=== PATIENT | male | born 1950 | race American Indian/Alaskan Native ===

== ENCOUNTER 2020-04-21 16:07 | Emergency (ER) | payer SELFPAY ==
[2020-04-21] MEDS ORDERED: ASPIRIN 325 MG TAB PO ONE (16:30)
--- NOTE | 2020-04-21 16:33 | Event Note ---
ED Screening Note ED Screening Note: chest pain for 1-2 days radiates to left face This initial assessment/diagnostic orders/clinical plan/treatment(s) is/are subject to change based on patients health status, clinical progression and re- assessment by fellow clinical providers in the ED. Further treatment and workup at subsequent clinical providers discretion. Patient/guardian urged not to elope from the ED as their condition may be serious if not clinically assessed and managed. Initial orders include: cardiac evaluation
[2020-04-21 16:47] LABS: Basophils % (Auto) 0.5 % (0.0-1.8); Eosinophils # (Auto) 0.1 K/mm3 (0.0-0.4); Eosinophils % (Auto) 1.5 % (0.0-4.3); Hematocrit 37.7 % (35.5-45.6); Hemoglobin 13.2 gm/dl (11.8-15.2); Lymphocytes # (Auto) 2.3 K/mm3 (1.2-5.4); Lymphocytes % (Auto) 28.5 % (13.4-35.0); Mean Corpuscular HGB Conc 35 % (32-34); Mean Corpuscular Volume 91 fl (84-94); Monocytes # (Auto) 0.4 K/mm3 (0.0-0.8); Monocytes % (Auto) 4.9 % (0.0-7.3); Platelet Count 228 K/mm3 (140-440); Red Blood Count 4.15 M/mm3 (3.65-5.03); Red Cell Distribution Width 14.6 % (13.2-15.2)
[2020-04-21 17:03] LABS: Alanine Aminotransferase 12 units/L (7-56); Albumin 4.1 g/dL (3.9-5); BUN/Creatinine Ratio 10; Blood Urea Nitrogen 9 mg/dL (9-20); Calcium 8.7 mg/dL (8.4-10.2); Hemolysis Index 4
--- NOTE | 2020-04-21 17:19 | Emergency Department Report ---
ED Chest Pain HPI - General Chief Complaint: Chest Pain Stated Complaint: CHEST PAIN PUI?: No Time Seen by Provider: 04/21/20 17:13 Source: patient Mode of arrival: Ambulatory Limitations: No Limitations - History of Present Illness Initial Comments: Patient is a 69-year-old male that presents emergency room with complaints of c hest pain x2 days. Patient states that his chest pain has been there for 2 days and is worsening. Patient states yesterday it was a 2 out of 10 and now it is a 5 out of 10. Patient states the chest pain is worse with palpation and movement. Patient states the chest pain is better with rest. Patient denies chest wall trauma. Patient denies fall. Patient denies shortness of breath. Patient states he has had chest wall pain for many years and it comes and goes. Patient states that he typically just waits for it to go away and does not take medications. Patient denies fever and chills. Patient denies nausea and vomiting. Patient states she moved here from [place] to go to a long term in this area. Patient states he is in a long term for his psychiatric diagnosis. Patient denies recent travel. Patient denies recent international travel. Patient denies exposure to the novel coronavirus. Patient denies sick contacts. Patient denies fever and chills. Patient denies cough. Patient denies diarrhea. Patient denies coming in contact with anybody with symptoms of the novel coronavirus. MD Complaint: chest pain -: Sudden Onset: during rest Pain Location: substernal, left chest, right chest Pain Radiation: neck Severity scale (0 -10): 5 Quality: sharp Consistency: constant Improves With: rest Worsens With: palpation, movement re: denies: nausea, vomting, diaphoresis, dyspnea, sense of impending doom Other Symptoms: denies: cough, fever, syncope, rash, acid taste in mouth, leg swelling, palpitations, burping Treatments Prior to Arrival: none Aspirin use within the Past 7 Days: (0) No - Related Data On Oral Contraceptives: No Previous Rx's Medication Instructions Recorded Last Taken Type Naproxen 500 mg PO BID PRN #10 tablet 04/21/20 Unknown Rx Allergies Allergy/AdvReac Type Severity Reaction Status Date / Time No Known Allergies Allergy Unverified 04/21/20 16:27 Heart Score - HEART Score History: Slightly suspicious EKG: Normal Age: > 65 Risk factors: No known risk factors Troponin: < normal limit HEART Score: 2 ED Review of Systems ROS: Stated complaint: CHEST PAIN Other details as noted in HPI Constitutional: denies: chills, fever Eyes: denies: eye pain, eye discharge, vision change ENT: denies: ear pain, throat pain Respiratory: denies: cough, shortness of breath, wheezing Cardiovascular: chest pain. denies: palpitations Endocrine: no symptoms reported Gastrointestinal: denies: abdominal pain, nausea, diarrhea Genitourinary: denies: urgency, dysuria Musculoskeletal: denies: back pain, joint swelling, arthralgia Skin: denies: rash, lesions Neurological: denies: headache, weakness, paresthesias Psychiatric: denies: anxiety, depression Hematological/Lymphatic: denies: easy bleeding, easy bruising ED Past Medical Hx - Past Medical History Previous Medical History?: Yes Hx Psychiatric Treatment: Yes (Memory and depression) - Surgical History Past Surgical History?: Yes Additional Surgical History: left hip - Family History Family history: no significant - Social History Smoking Status: Never Smoker Substance Use Type: None - Medications Home Medications: Home Medications Medication Instructions Recorded Confirmed Last Taken Type Naproxen 500 mg PO BID PRN #10 tablet 04/21/20 Unknown Rx ED Physical Exam - General Limitations: No Limitations General appearance: alert, in no apparent distress - Head Head exam: Present: atraumatic, normocephalic - Eye Eye exam: Present: normal appearance - ENT ENT exam: Present: mucous membranes moist - Neck Neck exam: Present: normal inspection - Respiratory Respiratory exam: Present: normal lung sounds bilaterally, chest wall tenderness (Palpation of the bilateral chest wall and the sternal region reproduces symptoms. Patient has chest wall tenderness noted.). Absent: respiratory distress - Cardiovascular Cardiovascular Exam: Present: regular rate, normal rhythm. Absent: systolic murmur, diastolic murmur, rubs, gallop - GI/Abdominal GI/Abdominal exam: Present: soft, normal bowel sounds. Absent: distended, tenderness, guarding - Rectal Rectal exam: Present: deferred - Extremities Exam Extremities exam: Present: normal inspection - Back Exam Back exam: Present: normal inspection - Neurological Exam Neurological exam: Present: alert, oriented X3 - Psychiatric Psychiatric exam: Present: normal affect, normal mood - Skin Skin exam: Present: warm, dry, intact, normal color. Absent: rash ED Course Vital Signs 04/21/20 04/21/20 16:32 18:38 Temperature 97.7 F 98 F Pulse Rate 74 65 Respiratory 18 18 Rate Blood Pressure 102/70 Blood Pressure 135/83 [Right] O2 Sat by Pulse 97 Oximetry - Reevaluation(s) Reevaluation #1: Patient states his pain has resolved. I discussed all results and clinical findings with patient. I discussed plan of care with patient. Patient agrees with plan of care. Patient is stable for discharge. Patient will be discharged home. Patient given discharge instructions. Patient voiced understanding of discharge instructions. Patient's information faxed over by the business unit leader to our local cardiology group for further evaluation and treatment and restratification of his chest pain. 04/21/20 17:56 MICHAEL score - Michael Score Age > 65: (1) Yes Aspirin use within the Past 7 Days: (0) No 3 or more CAD Risk Factors: (0) No 2 or more Angina events in past 24 hrs: (0) No Known CAD with more than 50% Stenosis: (0) No Elevated Cardiac Markers: (0) No ST Deviation Greater than 0.5mm: (0) No MICHAEL Score: 1 ED Medical Decision Making - Lab Data Result diagrams: 04/21/20 16:35 04/21/20 16:35 - EKG Data -: EKG Interpreted by Me EKG shows normal: sinus rhythm, axis, intervals, QRS complexes, ST-T waves Rate: normal - Radiology Data Radiology results: report reviewed, image reviewed interpreted by me: Chest x-ray: No pneumonia, no pneumothorax, no foreign body, no osseous findings, no acute findings - Medical Decision Making Patient is a 69-year-old male that presents emergency room with chest pain x2 d ays. Patient's chest pain is radiating up towards the base of his neck. Patient's chest pain is reproducible on exam. Patient had labs and a cardiac work-up to include EKG and chest x-ray and blood work. Patient's labs were essentially unremarkable. Patient's troponin negative. Patient's EKG shows no acute findings or ST changes. Patient's EKG shows a sinus bradycardia. Patient EKG was interpreted by me. Patient's chest x-ray was done. Patient chest x- ray shows no acute findings. Patient's chest x-ray was interpreted by me. Patient is stable for discharge. Patient's chest pain can be worked up as outpatient. Patient's information faxed over to our local block greaser for further evaluation and treatment and risk stratification. Patient's chest pain resolved prior to discharge. Patient did not receive aspirin and the aspirin was discontinued. - Differential Diagnosis Chest pain, chest wall pain, costochondritis. Chest wall strain Critical care attestation.: If time is entered above; I have spent that time in minutes in the direct care of this critically ill patient, excluding procedure time. ED Disposition Clinical Impression: Costochondritis, acute Chest pain Qualifiers: Chest pain type: unspecified Qualified Code(s): R07.9 - Chest pain, unspecified Disposition: TO HOME OR SELFCARE Is pt being admited?: No Does the pt Need Aspirin: No Condition: Stable Instructions: Chest Wall Pain, [id number], Nonspecific Chest Pain, Adult, Nonspecific Chest Pain, Adult, [id number], Costochondritis, Chest Pain (ED) Additional Instructions: Patient to follow-up with primary care in 2 to 3 days. Patient to follow-up with cardiology in 2 to 3 days. Patient to rest. Patient to increase water. Patient to avoid strenuous exercise or heavy lifting until cleared by cardiology. Patient to take Tylenol as needed for pain. Patient to take 81 mg aspirin daily. Patient to take meds as directed. Patient to return to the ER if condition worsens, changes or new symptoms arise. Prescriptions: Naproxen 500 mg PO BID PRN #10 tablet PRN Reason: Pain , Severe (7-10) Referrals: SHEILA BUNDY MD [Staff Physician] - 2-3 Days PRACHI URIAS MD [Staff Physician] - 2-3 Days EMMANUEL HUNG MD [Staff Physician] - 2-3 Days Time of Disposition: 17:56
--- NOTE | 2020-04-21 18:24 | XRay Report ---
CHEST 2 VIEWS INDICATION / CLINICAL INFORMATION: Chest Pain. COMPARISON: None available. FINDINGS: SUPPORT DEVICES: None. HEART / MEDIASTINUM: No significant abnormality. LUNGS / PLEURA: No significant pulmonary or pleural abnormality. No pneumothorax. ADDITIONAL FINDINGS: No significant additional findings. IMPRESSION: 1. No acute findings. Signer Name: Sheila Uribe MD Signed: 04/21/2020 6:19 PM Workstation Name: [id number]
[2020-04-21 18:39] VITALS: BP 135/83
== END 2020-04-21 18:42 | disposition home or self-care (01) ==
LOC: ED 16:07
DX: M94.0 Chondrocostal junction syndrome [Tietze] (principal); R07.9 Chest pain, unspecified; F32.9 Major depressive disorder, single episode, unspecified; Z79.899 Other long term (current) drug therapy; Z98.890 Other specified postprocedural states
CPT/HCPCS: 36415; 71046; 80053; 83880; 84484; 85025; 93005; 99283

== ENCOUNTER 2021-03-04 13:25 | Emergency (ER) | payer MEDICARE ==
[2021-03-04 13:31] VITALS: BP 138/106
--- NOTE | 2021-03-04 14:24 | Event Note ---
ED Screening Note Date of service: 03/04/21 Time: 14:21 ED Screening Note: 70-year-old male presents to the emergency room for 4 to 5-year history of right lower quadrant pain. Patient states that the last day he has had pain a 4 out of 10. Patient is taking nothing for his pain. He states that he still has his appendix. 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 He has a history of schizophrenia denies any hallucinations no suicidal homicidal ideation. Patient reports that she is under too much stress. He denies any testicular pain or testicular swelling. He states he takes risperidone and a purple pill at night. He is followed by mental health at [facility] on [address] He denies any fever chills no nausea no vomiting states that exercising makes it worse and nothing makes it better. Patient has right lower quadrant tenderness. Nontoxic in appearance. Respiratory is is nonlabored This initial assessment/diagnostic orders/clinical plan/treatment(s) is/are subject to change based on patients health status, clinical progression and re- assessment by fellow clinical providers in the ED. Further treatment and workup at subsequent clinical providers discretion. Patient/guardian urged not to elope from the ED as their condition may be serious if not clinically assessed and managed. Initial orders include: INT CBC CMP urinalysis and lipase has been ordered
[2021-03-04] MEDS ORDERED: MORPHINE 4 MG/1 ML INJ IV ONE (14:34)
[2021-03-04] MEDS ORDERED: ONDANSETRON 4 MG/2 ML INJ IV ONE (14:35)
[2021-03-04 14:54] LABS: Basophils % (Auto) 0.5 % (0.0-1.8); Eosinophils % (Auto) 0.5 % (0.0-4.3); Hematocrit 46.4 % (35.5-45.6); Hemoglobin 15.3 gm/dl (11.8-15.2); Lymphocytes # (Auto) 2.8 K/mm3 (1.2-5.4); Lymphocytes % (Auto) 34.9 % (13.4-35.0); Mean Corpuscular HGB Conc 33 % (32-34); Mean Corpuscular Volume 92 fl (84-94); Monocytes # (Auto) 0.5 K/mm3 (0.0-0.8); Monocytes % (Auto) 6.1 % (0.0-7.3); Platelet Count 329 K/mm3 (140-440); Red Blood Count 5.07 M/mm3 (3.65-5.03); Red Cell Distribution Width 13.6 % (13.2-15.2)
[2021-03-04 15:13] LABS: Alanine Aminotransferase 11 units/L (7-56); Albumin 4.9 g/dL (3.9-5); Blood Urea Nitrogen 6 mg/dL (9-20); Calcium 9.9 mg/dL (8.4-10.2); Hemolysis Index 6
--- NOTE | 2021-03-04 15:14 | Cat Scan Report ---
. CT abdomen pelvis wo con INDICATION: abdominal pain. TECHNIQUE: All CT scans at this location are performed using CT dose reduction for ALARA by means of automated e xposure control. COMPARISON: None available. FINDINGS: The included lung bases demonstrate mild chronic scarring without acute abnormality. The gallbladder has a gallstone without evidence of acute cholecystitis. The liver, spleen, adrenal g lands, pancreas, and kidneys demonstrate no acute findings. There are some small nonobstructing stone s in left kidney measuring up to 5 mm. There is a simple cyst in the anterior left kidney. There are no acute bowel abnormalities. There is mild constipation. The abdominal aorta is nonaneurysmal. There is no abdominal or pelvic adenopathy. There are no acute osseous abnormalities. There are chronic appearing compression fractures of L1, L2, L3, and L4. IMPRESSION: 1. No acute findings. 2. Mild constipation. 3. Cholelithiasis. 4. Tiny nonobstructing left intrarenal stones. Signer Name: Jay Shelton MD Signed: 03/04/2021 3:09 PM Workstation Name: [id number]
[2021-03-04 15:26] LABS: BUN/Creatinine Ratio 9
--- NOTE | 2021-03-04 15:38 | Emergency Department Report ---
ED Abdominal Pain HPI - General Chief Complaint: Abdominal Pain Stated Complaint: RIGHT LOWER ABDOMINAL PAIN PUI?: No Time Seen by Provider: 03/04/21 14:33 Source: patient Mode of arrival: Ambulatory Limitations: No Limitations - History of Present Illness Initial Comments: Chief complaint abdominal pain HPI: This is a 70-year-old male with history of schizophrenia who presents with right upper quadrant pain. Pain is 4/10. No change with movement. He denies fever. Denies vomiting. MD Complaint: abdominal pain -: Gradual, days(s) (Several days) Location: RUQ Radiation: none Migration to: no migration Severity: mild Severity scale (0 -10): 4 Consistency: now resolved, other (After receiving IV morphine in the emergency department) Improves With: nothing Worsens With: nothing Associated Symptoms: nausea - Related Data Previous Rx's Medication Instructions Recorded Last Taken Type Naproxen 500 mg PO BID PRN #10 tablet 04/21/20 Unknown Rx HYDROcodone/APAP 5-325 [Lapwai 1 each PO Q6HR PRN #15 tablet 03/04/21 Unknown Rx 5/325] Allergies Allergy/AdvReac Type Severity Reaction Status Date / Time No Known Allergies Allergy Verified 03/04/21 13:31 ED Review of Systems ROS: Stated complaint: RIGHT LOWER ABDOMINAL PAIN Other details as noted in HPI Comment: All other systems reviewed and negative Constitutional: denies: chills, fever, malaise Cardiovascular: denies: chest pain Gastrointestinal: abdominal pain, nausea. denies: vomiting, diarrhea ED Past Medical Hx - Past Medical History Previous Medical History?: Yes Hx Psychiatric Treatment: Yes (Memory and depression) - Surgical History Past Surgical History?: Yes Additional Surgical History: left hip - Social History Smoking Status: Never Smoker Substance Use Type: None - Medications Home Medications: Home Medications Medication Instructions Recorded Confirmed Last Taken Type Naproxen 500 mg PO BID PRN #10 tablet 04/21/20 Unknown Rx HYDROcodone/APAP 5-325 [Lapwai 1 each PO Q6HR PRN #15 tablet 03/04/21 Unknown Rx 5/325] ED Physical Exam - General Limitations: No Limitations General appearance: alert, in no apparent distress, other (Well-appearing smiling appears comfortable eating food and drinking juice) - Head Head exam: Present: atraumatic, normocephalic - Eye Eye exam: Present: normal appearance - ENT ENT exam: Present: mucous membranes moist - Neck Neck exam: Present: normal inspection, full ROM - Respiratory Respiratory exam: Present: normal lung sounds bilaterally. Absent: respiratory distress, wheezes, rales, rhonchi - Cardiovascular Cardiovascular Exam: Present: regular rate, normal rhythm, normal heart sounds. Absent: systolic murmur, diastolic murmur, rubs, gallop - GI/Abdominal GI/Abdominal exam: Present: soft, normal bowel sounds. Absent: distended, tenderness, guarding, rebound - Rectal Rectal exam: Present: deferred - Extremities Exam Extremities exam: Present: normal inspection - Back Exam Back exam: Present: normal inspection - Neurological Exam Neurological exam: Present: alert, oriented X3 - Psychiatric Psychiatric exam: Present: normal affect, normal mood. Absent: depressed, agitated, anxious, flat affect, manic, homicidal ideation, suicidal ideation - Skin Skin exam: Present: warm, dry, intact, normal color. Absent: rash ED Course Vital Signs 03/04/21 13:29 Temperature 98.3 F Pulse Rate 76 Respiratory 16 Rate Blood Pressure 138/106 O2 Sat by Pulse 99 Oximetry ED Medical Decision Making - Lab Data Result diagrams: 03/04/21 14:20 03/04/21 14:20 Laboratory Results - last 24 hr 03/04/21 03/04/21 14:20 14:20 WBC 8.0 RBC 5.07 H Hgb 15.3 H Hct 46.4 H MCV 92 MCH 30 MCHC 33 RDW 13.6 Plt Count 329 Lymph % (Auto) 34.9 [place] % (Auto) 6.1 Eos % (Auto) 0.5 Baso % (Auto) 0.5 Lymph # (Auto) 2.8 [place] # (Auto) 0.5 Eos # (Auto) 0.0 Baso # (Auto) 0.0 Seg Neutrophils % 58.0 Seg Neutrophils # 4.6 Sodium 138 Potassium 3.9 Chloride 97.8 L Carbon Dioxide 26 Anion Gap 18 BUN 6 L Creatinine 0.7 L Estimated GFR > 60 BUN/Creatinine Ratio 9 Glucose 101 H Calcium 9.9 Total Bilirubin 0.70 AST 18 ALT 11 Alkaline Phosphatase 136 H Total Protein 7.6 Albumin 4.9 Albumin/Globulin Ratio 1.8 Lipase 33 - Radiology Data Radiology results: report reviewed Patient Name: BATOOL KNOX Gender: Male Date of : 1950 Referring Provider: SARAHI ROSE Organization: [facility] Accession Number: [id number] Requested Date: March 04, 2021 14:34 Report Status: Final Requested Procedure: 1 Procedure Description: CT abdomen pelvis wo con Modality: CT Findings Reporting MD: Jay Shelton Dictation Time: March 04, 2021 14:09 Column Precaster: Not available Social Sciences Professor Date: . CT abdomen pelvis wo con INDICATION: abdominal pain. TECHNIQUE: All CT scans at this location are performed using CT dose reduction for ALARA by means of automated exposure control. COMPARISON: None available. FINDINGS: The included lung bases demonstrate mild chronic scarring without acute a bnormality. The gallbladder has a gallstone without evidence of acute cholecystitis. The liver, spleen, adrenal glands, pancreas, and kidneys demonstrate no acute findings. There are some small nonobstructing stones in left kidney measuring up to 5 mm. There is a simple cyst in the anterior left kidney. There are no acute bowel abnormalities. There is mild constipation. The abdominal aorta is nonaneurysmal. There is no abdominal or pelvic adenopathy. There are no acute osseous abnormalities. There are chronic appearing compression fractures of L1, L2, L3, and L4. IMPRESSION: 1. No acute findings. 2. Mild constipation. 3. Cholelithiasis. 4. Tiny nonobstructing left intrarenal stones. Signer Name: Jay Shelton MD Signed: 03/04/2021 2:09 PM Workstation Name: [id number] - Medical Decision Making Clinical impression: Biliary colic CT revealed cholelithiasis and constipation. Patient tolerating snacks and juice in the emergency department. Referred to general surgeon. Prescribed Lapwai. CBC chemistry within normal limits Critical care attestation.: If time is entered above; I have spent that time in minutes in the direct care of this critically ill patient, excluding procedure time. ED Disposition Clinical Impression: Biliary colic, Cholelithiasis, Gallstones Disposition: HOME / SELF CARE / HOMELESS Is pt being admited?: No Does the pt Need Aspirin: No Condition: Stable Instructions: Cholelithiasis, [id number] Additional Instructions: Please make appointment with general surgeon. You may need your gallbladder ta shelbi out. Prescriptions: HYDROcodone/APAP 5-325 [Lapwai 5/325] 1 each PO Q6HR PRN #15 tablet PRN Reason: Pain Referrals: BRISSA VAZQUEZ DO [Staff Physician] - 3-5 Days
== END 2021-03-04 16:56 | disposition home or self-care (01) ==
LOC: ED 13:25
DX: K80.50 Calculus of bile duct without cholangitis or cholecystitis without obstruction (principal); K80.80 Other cholelithiasis without obstruction; Z79.899 Other long term (current) drug therapy
CPT/HCPCS: 36415; 74176; 80053; 83690; 85025; 96374; 96375; 99284; J2270; J2405

== ENCOUNTER 2021-08-06 10:55 | Emergency (ER) | payer MEDICARE, OTHER ==
[2021-08-06 11:55] LABS: Basophils % (Auto) 0.6 % (0.0-1.8); Eosinophils # (Auto) 0.1 K/mm3 (0.0-0.4); Eosinophils % (Auto) 1.5 % (0.0-4.3); Hematocrit 41.3 % (35.5-45.6); Hemoglobin 14.2 gm/dl (11.8-15.2); Lymphocytes # (Auto) 2.1 K/mm3 (1.2-5.4); Lymphocytes % (Auto) 35.3 % (13.4-35.0); Mean Corpuscular HGB Conc 35 % (32-34); Mean Corpuscular Volume 91 fl (84-94); Monocytes # (Auto) 0.3 K/mm3 (0.0-0.8); Monocytes % (Auto) 4.5 % (0.0-7.3); Platelet Count 299 K/mm3 (140-440); Red Blood Count 4.54 M/mm3 (3.65-5.03); Red Cell Distribution Width 13.7 % (13.2-15.2)
[2021-08-06 12:00] LABS: Bilirubin,Urine NEG (Negative); Blood,Urine NEG (Negative); Color,Urine Yellow (Yellow); Protein,Urine <15 mg/dL mg/dL (Negative); Urobilinogen,Urine < 2.0 mg/dL (<2.0)
[2021-08-06 12:17] LABS: Alanine Aminotransferase 9 units/L (7-56); BUN/Creatinine Ratio 11; Blood Urea Nitrogen 11 mg/dL (9-20); Calcium 10.1 mg/dL (8.4-10.2); Hemolysis Index 6
--- NOTE | 2021-08-06 17:31 | Cat Scan Report ---
CT ABDOMEN AND PELVIS WITHOUT CONTRAST HISTORY: rlq pain. COMPARISON: CT abdomen/pelvis from 03/04/2021 TECHNIQUE: CT images of the abdomen and pelvis were obtained without administration of intravenous co ntrast. All CT scans at this location are performed using CT dose reduction for ALARA by means of au tomated exposure control. FINDINGS: Lungs/bones: There are diffuse prominent interstitial lung markings in the lung bases with no consol idation or pleural effusion. There are degenerative changes in the spine and the pelvis with nothing acute. Abdomen/pelvis: The liver, spleen, pancreas, adrenals, right kidney, and proximal GI tract appear un remarkable. There is minimal cholelithiasis with no inflammation. A 4 mm nonobstructive calyceal ston e is again seen in the lower pole the left kidney. Simple left renal cysts are present. Urinary bladder is partially collapsed which limits evaluation. Within this limitation there is quest ionable wall thickening along the dome and right of midline. Prostate is not well-seen. There is colo claire diverticulosis with no acute inflammation identified. The appendix is normal. Terminal ileum is a lso normal. IMPRESSION: 1. Bladder findings as outlined above. Correlate with UA and consider follow-up cystoscopy as indicat ed. Otherwise nothing acute. 2. Additional incidental findings as above. Signer Name: Avery Thomas MD Signed: 08/06/2021 5:26 PM Workstation Name: [id number]
--- NOTE | 2021-08-06 17:40 | Emergency Department Report ---
ED Abdominal Pain HPI - General Chief Complaint: Abdominal Pain Stated Complaint: HERNIA Time Seen by Provider: 08/06/21 16:24 Source: patient Mode of arrival: Ambulatory Limitations: No Limitations - History of Present Illness Initial Comments: 70-year-old white male with a past medical history of prostate cancer presents to the emergency department for evaluation of 2-week history of right lower quadrant pain. He states that pain has been worse over the past few days. He denies fever, nausea, vomiting, diarrhea, and dysuria. He states that pain at its worst is 7 out of 10. He states that he has not taken any medications for symptoms. MD Complaint: abdominal pain -: Gradual, week(s) (To) Location: RLQ Radiation: none Migration to: no migration Severity scale (0 -10): 5 Quality: aching Consistency: intermittent Associated Symptoms: denies: nausea, vomiting, diarrhea, fever, chills, dysuria, hematemesis, hematochezia, melena, hematuria, anorexia, syncope - Related Data Previous Rx's Medication Instructions Recorded Last Taken Type Naproxen 500 mg PO BID PRN #10 tablet 04/21/20 Unknown Rx HYDROcodone/APAP 5-325 [O'Brien 1 each PO Q6HR PRN #15 tablet 03/04/21 Unknown Rx 5/325] Allergies Allergy/AdvReac Type Severity Reaction Status Date / Time No Known Allergies Allergy Verified 03/04/21 13:31 ED Review of Systems ROS: Stated complaint: HERNIA Other details as noted in HPI Comment: All other systems reviewed and negative Constitutional: denies: chills, fever Respiratory: denies: shortness of breath Cardiovascular: denies: chest pain, palpitations Gastrointestinal: abdominal pain. denies: nausea, vomiting, diarrhea, hematemesis, melena, hematochezia Genitourinary: denies: urgency, dysuria, frequency, hematuria, discharge Neurological: denies: headache, weakness ED Past Medical Hx - Past Medical History Previous Medical History?: Yes Hx Psychiatric Treatment: Yes (Memory and depression) Additional medical history: Hip pain, DJD, Left hip pian - Surgical History Past Surgical History?: Yes Additional Surgical History: left hip - Social History Smoking Status: Never Smoker Substance Use Type: None - Medications Home Medications: Home Medications Medication Instructions Recorded Confirmed Last Taken Type Naproxen 500 mg PO BID PRN #10 tablet 04/21/20 Unknown Rx HYDROcodone/APAP 5-325 [O'Brien 1 each PO Q6HR PRN #15 tablet 03/04/21 Unknown Rx 5/325] ED Physical Exam - General Limitations: No Limitations General appearance: alert, in no apparent distress - Head Head exam: Present: atraumatic, normocephalic - Eye Eye exam: Present: normal appearance. Absent: conjunctival injection - Neck Neck exam: Present: normal inspection, full ROM. Absent: tenderness, lympha denopathy - Respiratory Respiratory exam: Present: normal lung sounds bilaterally. Absent: respiratory distress, wheezes, rales, rhonchi, stridor, chest wall tenderness - Cardiovascular Cardiovascular Exam: Present: regular rate, normal heart sounds - GI/Abdominal GI/Abdominal exam: Present: soft, tenderness (Right lower quadrant), normal bowel sounds. Absent: distended, guarding, rebound, rigid - Extremities Exam Extremities exam: Present: normal inspection, normal capillary refill. Absent: pedal edema, joint swelling, calf tenderness - Back Exam Back exam: Present: normal inspection. Absent: CVA tenderness (R), CVA tenderness (L) - Neurological Exam Neurological exam: Present: alert, oriented X3 - Psychiatric Psychiatric exam: Present: normal affect, normal mood - Skin Skin exam: Present: warm, dry, intact, normal color ED Course Vital Signs 08/06/21 11:06 Temperature 97.6 F Pulse Rate 78 Respiratory 20 Rate Blood Pressure 109/77 [Right] O2 Sat by Pulse 98 Oximetry ED Medical Decision Making - Lab Data Result diagrams: 08/06/21 11:26 08/06/21 11:26 - Radiology Data Radiology results: report reviewed, image reviewed CT abdomen and pelvis without contrast: FINDINGS: Lungs/bones: There are diffuse prominent interstitial lung markings in the l dedrick bases with no consolidation or pleural effusion. There are degenerative changes in the spine and the pelvis with nothing acute. Abdomen/pelvis: The liver, spleen, pancreas, adrenals, right kidney, and proximal GI tract appear unremarkable. There is minimal cholelithiasis with no inflammation. A 4 mm nonobstructive calyceal stone is again seen in the lower pole the left kidney. Simple left renal cysts are present. Urinary bladder is partially collapsed which limits evaluation. Within this limitation there is questionable wall thickening along the dome and right of midline. Prostate is not well-seen. There is colonic diverticulosis with no acute inflammation identified. The appendix is normal. Terminal ileum is also normal. IMPRESSION: 1. Bladder findings as outlined above. Correlate with UA and consider follow-up cystoscopy as indicated. Otherwise nothing acute. 2. Additional incidental findings as above. - Medical Decision Making 70-year-old white male with a past medical history of prostate cancer presents to the emergency department for evaluation of 2-week history of right lower quadrant pain. He states that pain has been worse over the past few days. He denies fever, nausea, vomiting, diarrhea, and dysuria. He states that pain at its worst is 7 out of 10. He states that he has not taken any medications for symptoms. Physical exam unremarkable, no gross abnormalities noted to labs, and urine negative for urinary tract infection. CT scan of the abdomen without any acute abnormalities noted but did note minimal cholelithiasis and diverticulosis without inflammation. Patient will be discharged home to follow-up with his primary care provider or GI for further evaluation and management. He is advise d to return to the emergency department for any concerning symptoms. He verbalizes understanding of and agreement with plan of care. Critical care attestation.: If time is entered above; I have spent that time in minutes in the direct care of this critically ill patient, excluding procedure time. ED Disposition Clinical Impression: Diverticulosis Abdominal pain Qualifiers: Abdominal location: right lower quadrant Qualified Code(s): R10.31 - Right lo wer quadrant pain Cholelithiasis Qualifiers: Cholelithiasis location: gallbladder Cholecystitis presence: without cholecyst itis Biliary obstruction: without biliary obstruction Qualified Code(s): K80.20 - Calculus of gallbladder without cholecystitis without obstruction Disposition: 01 HOME / SELF CARE / HOMELESS Is pt being admited?: No Does the pt Need Aspirin: No Condition: Stable Instructions: Cholelithiasis, [id number], Abdominal Pain, Adult, [id number], Gallbladder Eating Plan Additional Instructions: Follow-up with your primary care provider or manager regional for further evaluation and management. Return to the emergency department as needed. Referrals: EMMANUEL HUNG MD [Staff Physician] - 3-5 Days BRITTANIE MAHAN MD [Staff Physician] - 3-5 Days Time of Disposition: 17:41
[2021-08-06 17:50] VITALS: BP 147/94
== END 2021-08-06 17:50 | disposition home or self-care (01) ==
LOC: ED 10:55
DX: K57.90 Diverticulosis of intestine, part unspecified, without perforation or abscess without bleeding (principal); R10.31 Right lower quadrant pain; K80.20 Calculus of gallbladder without cholecystitis without obstruction
CPT/HCPCS: 36415; 74176; 80053; 81001; 83690; 85025; 99284